=== PATIENT | male | born 1960 | race Caucasian/White ===

== ENCOUNTER 2024-05-31 10:11 | Outpatient (CLI) | payer OTHER, SELFPAY ==
[2024-05-31 10:31] LABS: Hematocrit 41.2 % (42.0-52.0); Hemoglobin 14.2 g/dL (14.0-18.0); Mean Corpuscular HGB Conc 34.5 g/dl (32-36); Mean Corpuscular Hemoglobin 32.8 pg (26-34); Mean Corpuscular Volume 95.2 fl (80-100); Mean Platelet Volume 8.8 fl (7.4-10.4); Platelet Count Result 172 k/mm3 (150-375); Red Blood Count 4.33 M/mm3 (4.6-6.20); Red Cell Distribution Width 11.9 % (11.5-14.5); White Blood Count 3.8 K/mm3 (4.5-10.0)
[2024-05-31 10:43] LABS: Alanine Aminotransferase 102 U/L (6-50); Albumin Level 4.6 g/dL (3.5-5.1); Alkaline Phosphatase 52 U/L (38-126); Anion Gap 5 mmol/L (4-12); Aspartate Amino Transferase 137 U/L (17-59); Bilirubin,Total 1.7 mg/dL (0.2-1.3); Blood Urea Nitrogen 4 mg/dL (9-20); Calcium 9.4 mg/dL (8.4-10.2); Carbon Dioxide 29 mmol/L (22-30); Chloride 100 mmol/L (98-107); Cholesterol 209 mg/dL (0-200); Estimated Glomerular Filt Rate > 60; Glucose 87 mg/dL (65-110); HDL Direct 73 mg/dL; Sodium 134 mmol/L (137-145); Triglycerides 207 mg/dL (<150)
[2024-05-31 10:54] LABS: LDL Cholesterol Direct 107 mg/dL
[2024-05-31 11:14] LABS: Prostate Specific Antigen 3.6 ng/mL (< OR = 4.0); Thyroid Stimulating Hormone 0.752 uIU/mL (0.465-4.680)
== END 2024-05-31 10:12 | disposition home or self-care (01) ==
LOC: ANHLAB 10:14
PROVIDERS: PCP Internal Medicine; Visit Provider Nurse Practitioner
DX: Z00.00 Encounter for general adult medical examination without abnormal findings (principal); Z12.5 Encounter for screening for malignant neoplasm of prostate
CPT/HCPCS: 36415; 80053; 80061; 84153; 84443; 85027; G0103

== ENCOUNTER 2024-06-19 07:50 | Outpatient (CLI) | payer OTHER, SELFPAY ==
--- NOTE | ~2024-06-19 | US_ITS ---
Limited ABDOMINAL ULTRASOUND Ordering provider: Alon Cannon APRN History: . R74.8 - Abnormal levels of other serum enzymes . Comparison: None. FINDINGS: LIVER: Normal size and increased echotexture. No focal hepatic lesions or perihepatic fluid collectio ns are identified. Portal vein flow is normal. GALLBLADDER: Unremarkable. No evidence for stones, sludge, gallbladder wall thickening or pericholecy stic fluid collections. A negative sonographic Morejon's sign was noted. BILIARY DUCTS: No evidence for intra or extrahepatic biliary dilation. Common bile duct measures 3 mm in diameter which is within normal limits. PANCREAS: Normal echotexture and size. KIDNEYS: Right measures 10 cm in length There is no evidence for hydronephrosis, solid renal mass, re nal calculi or perinephric fluid collections. No renal cysts. UPPER ABDOMINAL AORTA: Normal in caliber. IVC: Patent. FREE FLUID: None. IMPRESSION: Fat infiltration. Otherwise, Unremarkable limited ultrasound of the abdomen. Reviewed, dictated and finalized at location A. [employer]
== END 2024-06-19 07:51 | disposition home or self-care (01) ==
PROVIDERS: PCP Nurse Practitioner; Visit Provider Nurse Practitioner
DX: K76.0 Fatty (change of) liver, not elsewhere classified (principal)
CPT/HCPCS: 76705